=== PATIENT | female | born 1975 | race Caucasian/White ===

== ENCOUNTER 2017-05-07 16:40 | Emergency (ER) | payer MEDICAID ==
[~2017-05-07] VITALS: Ht 157.5 cm; Wt 59.0 kg
[2017-05-07 16:55] VITALS: Ht 157.5 cm; Wt 59.0 kg
[2017-05-07 19:54] VITALS: BP 143/87
== END 2017-05-07 19:54 | disposition home or self-care (01) ==
LOC: ED 16:40
DX: J45.901 Unspecified asthma with (acute) exacerbation (principal)
CPT/HCPCS: 87804; J7512; J7613